=== PATIENT | female | born 1970 | race Caucasian/White ===

== ENCOUNTER → 2024-11-04 06:53 | Outpatient (REF) | payer BC, OTHER, SELFPAY | LOC: HWRCS 06:53 | PROVIDERS: ATTENDING PHYSICIAN Internal Medicine Clinical Cardiac Electrophysiology; FAMILY PHYSICIAN Family Medicine | DX: R07.89 Other chest pain (principal); R00.2 Palpitations | CPT/HCPCS: 93306 ==

== ENCOUNTER → 2024-11-06 08:59 | Outpatient (REF) | payer BC, OTHER, SELFPAY | LOC: RAD 08:59 | PROVIDERS: ATTENDING PHYSICIAN Otolaryngology; FAMILY PHYSICIAN Family Medicine | DX: Q39.6 Congenital diverticulum of esophagus (principal); R13.14 Dysphagia, pharyngoesophageal phase; R09.A2 Foreign body sensation, throat | CPT/HCPCS: 74221 ==